=== PATIENT | male | born 1970 | race Caucasian/White ===

== ENCOUNTER 2016-08-06 17:06 | Emergency (ER) | payer MEDICAID ==
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
== END 2016-08-06 19:35 | disposition home or self-care (01) ==
LOC: M ED 17:06
DX: K02.9 Dental caries, unspecified (principal); F32.9 Major depressive disorder, single episode, unspecified; Z79.899 Other long term (current) drug therapy; F17.210 Nicotine dependence, cigarettes, uncomplicated

== ENCOUNTER 2017-01-29 18:34 | Inpatient (IN) | payer MEDICAID, OTHER ==
[~2017-01-29] VITALS: Ht 190.5 cm; Wt 91.0 kg
[2017-01-29] MEDS ORDERED: DULO30CA PO (18:46)
[2017-01-29] MEDS ORDERED: BUSP10TA PO (18:46)
[2017-01-29] MEDS ORDERED: MORPHINE 4 MG/ML 1ML SYRINGE IV ONE ×2 (19:00→22:45)
[2017-01-29] MEDS ORDERED: ONDANSETRON 4MG/2ML VIAL (J2405) IV ONE (19:00)
[2017-01-29 19:08] LABS: BASO # 0.1 K/mm3 (0.0-0.2); BASO % 0.7 % (0.0-1.0); EOS # 0.2 K/mm3 (0.0-0.50); EOS % 2.8 % (0.0-3.0); LARGE UNSTAINED CELL # 0.2 K/mm3 (0.0-0.4); LARGE UNSTAINED CELL % 2.1 % (0.0-4.0); LYMPH # 2.8 K/mm3 (1.5-4.5); MEAN CORPUSCULAR HEMOGLOBIN 30.8 pg (27.0-33.0); MEAN CORPUSCULAR HGB CONC 34.6 g/dl (32.0-36.5); MONO # 0.5 K/mm3 (0.0-0.8); MONO % 5.4 % (0.0-5.0); NEUTROPHILS # 4.9 K/mm3 (1.8-7.7); PLATELET COUNT, AUTOMATED 236 k/mm3 (150-450); RED CELL DISTRIBUTION WIDTH 12.9 % (11.5-14.5); WHITE BLOOD COUNT 8.4 K/mm3 (4.0-10.0)
[2017-01-29 19:15] LABS: INR 0.99
[2017-01-29 19:33] LABS: ANION GAP 7 MEQ/L (8-16); BLOOD UREA NITROGEN 13 MG/DL (7-18); CALCIUM LEVEL 8.7 MG/DL (8.5-10.1); CARBON DIOXIDE LEVEL 24 MEQ/L (21-32); CHLORIDE LEVEL 105 MEQ/L (98-107); CREATININE FOR GFR 1.14 MG/DL (0.70-1.30); GLOMERULAR FILTRATION RATE > 60.0 (>60); GLUCOSE, FASTING 164 MG/DL (70-105); POTASSIUM SERUM 4.3 MEQ/L (3.5-5.1); SODIUM LEVEL 136 MEQ/L (136-145)
[2017-01-29] MEDS ORDERED: fentaNYL 100 MCG/2 ML INJECTION (J3010) IV ONE (20:00)
[2017-01-30] VITALS (8 sets, daily range): BP systolic 122–141; BP diastolic 74–80
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
[2017-01-30] MEDS ORDERED: ceFAZolin 1GM INJ (J0690) As Ordered ONE (15:17)
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
[2017-01-30] MEDS ORDERED: ceFAZolin 2 GM/D5W 50 ML IV BAG (J0690) As Ordered ONE (15:48)
[2017-01-30] MEDS ORDERED: PROPOFOL 500 MG/50 ML VIAL As Ordered ONE (16:11)
[2017-01-30] MEDS ORDERED: MIDAZOLAM INJ 2 MG/2 ML VIAL (J2250) As Ordered ONE (16:11)
[2017-01-30] MEDS ORDERED: dexameTHASONE 4 MG/ML 1ML VIAL (J1100) As Ordered ONE (16:11)
[2017-01-30] MEDS ORDERED: fentaNYL 250 MCG/5 ML INJECTION (J3010) As Ordered ONE (16:11)
[2017-01-30] MEDS ORDERED: ONDANSETRON 4MG/2ML VIAL (J2405) As Ordered ONE (16:12)
[2017-01-30] MEDS ORDERED: METOCLOPRAMIDE INJ 10MG/2ML VIAL (J2765) As Ordered ONE (16:12)
[2017-01-30] MEDS ORDERED: HYDROmorphone HCL 2 MG/ML 1ML VIAL (J1170) As Ordered ONE (17:39)
[2017-01-30] MEDS ORDERED: ePHEDrine SULFATE 25 MG/5 ML(5MG/ML) SYRINGE As Ordered ONE (17:39)
[2017-01-30] MEDS ORDERED: LABETALOL HCL 100 MG/20 ML VIAL As Ordered ONE (17:59)
[2017-01-30] MEDS ORDERED: PERCOCET 5MG/325MG TAB PO PRN (18:30)
[2017-01-30] MEDS ORDERED: MEPERIDINE INJ 25 MG/ML VIAL (J2175) IV PRN (18:30)
[2017-01-30] MEDS ORDERED: ONDANSETRON 4MG/2ML VIAL (J2405) IV PRN (18:30)
[2017-01-30] MEDS ORDERED: METOCLOPRAMIDE INJ 10MG/2ML VIAL (J2765) IV PRN (18:30)
[2017-01-30] MEDS ORDERED: LR 1,000 ML IV SCH (18:30)
[2017-01-30] MEDS ORDERED: fentaNYL 100 MCG/2 ML INJECTION (J3010) IV PRN (18:30)
[2017-01-30] MEDS ORDERED: PERCOCET 5MG/325MG TAB As Ordered ONE (18:48)
--- NOTE | 2017-01-30 19:37 | REP ---
C-ARM VIEWS RIGHT LOWER LE C-ARM views of the right lower leg are performed. There is placement of an intramedullary terri in the tibia fixed by metallic screws both proximally and distally. There are fractures of the proximal fibula and also the distal tibia and fibula. The structures appear well aligned. 2 minutes and 22 seconds fluoroscopic time utilized. Signed by Daniel Howe MD 01/30/2017 08:21 P
[2017-01-31 00:15] VITALS: BP 143/79
[2017-01-31 02:00] VITALS: BP 139/77
[2017-01-31 06:00] VITALS: BP 109/56
[2017-01-31] MEDS ORDERED: PERC5TAB12 PO (07:39)
[2017-01-31] MEDS ORDERED: LOVE1INJ SC (07:42)
--- NOTE | 2017-01-31 14:22 | RO ---
DATE OF PROCEDURE: 01/30/2017 PREOPERATIVE DIAGNOSIS: Right tibia and fibula fracture, closed. POSTOPERATIVE DIAGNOSIS: Right tibia and fibular fracture, closed. PROCEDURE PERFORMED: Right tibia closed reduction and intramedullary nailing. SURGEON: Ochoa Hampton MD DESIGN TECHNOLOGY TEACHER: SHEFALI Alvarez ANESTHESIA: General. ESTIMATED BLOOD LOSS: 200 mL. IMPLANTS: Synthes tibial nail and locking screws. SPECIMENS: No specimens removed. REPLACED: No blood administered. COMPLICATIONS: No complications. DESCRIPTION OF PROCEDURE: The patient was identified in the preoperative holding area by name, medical record number, and date of . Surgical site was marked during consultation with the patient. He was evaluated by anesthesia. When he was ready he was brought back to the operative suite on the [facility] and transferred to the operating room table. At this point, general anesthesia was induced without complications. The right lower extremity was then sterilely prepped and draped in the usual fashion. Prior to beginning the procedure a final time out was performed and all agreed. He was given IV antibiotics prior to incision. This was a closed fracture and I began the procedure by making a longitudinal dissection centered on the patellar tendon, dissecting through the skin and subcutaneous fat. I split the patellar tendon in line with its fibers. I identified the starting point for the Synthes tibial nail in the usual location using fluoroscopic assistance. Next, the entry reamer followed by the ball tip Guidewire was inserted. While holding the fracture reduced with appropriate length, alignment and rotation by direct visualization and fluoroscopic views, it was sequentially reamed up to good cortical chatter at about 11.5. Next, a 10 mm tibial nail was inserted. Satisfactory reduction was appreciated by direct visualization and multiple fluoroscopic views. Next, using the perfect [place] technique, the nail was locked distally and following that it was back slapped to achieve compression at the fracture site and again confirm satisfactory reduction and placement of the hardware, and locked proximally. Final fluoroscopic views in multiple planes above and below the fracture site confirmed satisfactory reduction and placement of all hardware. The wounds were next copiously irrigated and closed in layers. Sterile dressings were applied. The patient was brought out of anesthesia and transferred to the postanesthesia care unit (PACU).
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
== END 2017-01-31 10:05 | disposition home or self-care (01) | DRG 313 ==
LOC: M ED 18:34 → M ED INP 21:20 → M MS5PR 01-30 01:25
PROC: 0SSF04Z Reposition Right Ankle Joint with Internal Fixation Device, Open Approach (ICD-10-PCS; principal; 2017-01-30 12:00)
DX: S82.841A Displaced bimalleolar fracture of right lower leg, initial encounter for closed fracture (principal); F32.9 Major depressive disorder, single episode, unspecified; F41.9 Anxiety disorder, unspecified; F17.200 Nicotine dependence, unspecified, uncomplicated; W17.89XA Other fall from one level to another, initial encounter; Y92.009 Unspecified place in unspecified non-institutional (private) residence as the place of occurrence of the external cause

== ENCOUNTER 2017-11-20 22:53 | Emergency (ER) | payer OTHER, MEDICAID ==
[2017-11-21] MEDS: diazePAM 5 MG TAB PO (00:12)
[2017-11-21 00:14] LABS: BASO # 0.1 10^3/uL (0.0-0.2); BASO % 0.6 % (0.0-1.0); EOS # 0.5 10^3/uL (0.0-0.50); EOS % 4.5 % (0.0-3.0); IMMATURE GRANULOCYTE % 0.6 % (0-3.0); MEAN CORPUSCULAR HEMOGLOBIN 31.5 pg (27.0-33.0); MEAN CORPUSCULAR HGB CONC 35.6 g/dl (32.0-36.5); MEAN CORPUSCULAR VOLUME 88.6 fl (80.0-96.0); MONO # 0.8 10^3/uL (0.0-0.8); MONO % 7.7 % (0.0-5.0); NEUTROPHILS # 4.7 10^3/uL (1.8-7.7); NEUTROPHILS % 46.6 % (36.0-66.0); PLATELET COUNT, AUTOMATED 226 10^3/uL (150-450); RED BLOOD COUNT 5.08 10^6/uL (4.30-6.10); RED CELL DISTRIBUTION WIDTH 12.6 % (11.5-14.5)
[2017-11-21 00:49] LABS: ALT/SGPT 56 U/L (12-78); ANION GAP 5 MEQ/L (8-16); AST/SGOT 36 U/L (7-37); BLOOD UREA NITROGEN 13 MG/DL (7-18); CALCIUM LEVEL 8.3 MG/DL (8.5-10.1); CARBON DIOXIDE LEVEL 30 MEQ/L (21-32); CHLORIDE LEVEL 106 MEQ/L (98-107); CK-MB VALUE MASS 1.6 NG/ML (<3.6); CPK CREATINE PHOSPHOKINASE 201 U/L (39-308); CREATININE FOR GFR 0.98 MG/DL (0.70-1.30); GLOMERULAR FILTRATION RATE > 60.0 (>60); GLUCOSE, FASTING 280 MG/DL (70-100); MB/CK RELATIVE INDEX 0.79 (< OR =4); POTASSIUM SERUM 4.6 MEQ/L (3.5-5.1); SODIUM LEVEL 141 MEQ/L (136-145)
[2017-11-21 00:50] LABS: ALBUMIN 3.6 GM/DL (3.2-5.2); ALBUMIN/GLOBULIN RATIO 1.06 (1.00-1.93); ALKALINE PHOSPHATASE 77 U/L (45-117); BILIRUBIN,TOTAL 0.6 MG/DL (0.2-1.0); TROPONIN I < 0.02 NG/ML (< 0.10)
[2017-11-21] MEDS: KETOROLAC TROMETHAMINE 10 MG TAB PO (01:36)
== END 2017-11-21 01:41 | disposition home or self-care (01) ==
LOC: M ED 11-21 01:41
DX: R07.81 Pleurodynia (principal); J21.9 Acute bronchiolitis, unspecified; E11.9 Type 2 diabetes mellitus without complications; F17.210 Nicotine dependence, cigarettes, uncomplicated; Z88.8 Allergy status to other drugs, medicaments and biological substances
CPT/HCPCS: 71046

== ENCOUNTER 2017-11-29 18:12 | Emergency (ER) | payer OTHER ==
[2017-11-29] MEDS: MORPHINE 10 MG/ML 1ML VIAL (J2270) IM (20:02)
[2017-11-29] MEDS: LORazepam 2 MG/ML VIAL (J2060) IM (20:02)
== END 2017-11-29 20:58 | disposition home or self-care (01) ==
LOC: M ED 18:12
DX: M54.12 Radiculopathy, cervical region (principal); M62.830 Muscle spasm of back; E11.9 Type 2 diabetes mellitus without complications; F32.9 Major depressive disorder, single episode, unspecified; F41.9 Anxiety disorder, unspecified; F17.210 Nicotine dependence, cigarettes, uncomplicated; Z88.6 Allergy status to analgesic agent; Z79.899 Other long term (current) drug therapy; Z79.52 Long term (current) use of systemic steroids
CPT/HCPCS: J2060

== ENCOUNTER → 2018-01-07 | Outpatient (REF) | payer OTHER ==
[2018-01-07 13:37] LABS: ESTIMATED AVERAGE GLUCOSE 255 MG/DL (60-110); HEMOGLOBIN A1c 10.5 %
[2018-01-07 13:59] LABS: ALBUMIN 3.8 GM/DL (3.2-5.2); ALBUMIN/GLOBULIN RATIO 1.12 (1.00-1.93); ALKALINE PHOSPHATASE 97 U/L (45-117); ALT/SGPT 43 U/L (12-78); ANION GAP 8 MEQ/L (8-16); AST/SGOT 17 U/L (7-37); BILIRUBIN,TOTAL 0.7 MG/DL (0.2-1.0); BLOOD UREA NITROGEN 15 MG/DL (7-18); CALCIUM LEVEL 8.8 MG/DL (8.5-10.1); CARBON DIOXIDE LEVEL 27 MEQ/L (21-32); CHLORIDE LEVEL 105 MEQ/L (98-107); CHOLESTEROL LEVEL 162 MG/DL (<200); CREATININE FOR GFR 1.16 MG/DL (0.70-1.30); GLOMERULAR FILTRATION RATE > 60.0 (>60); GLUCOSE, FASTING 220 MG/DL (70-100); HDL CHOLESTEROL 27 MG/DL (>40); NON-HDL-C 135 MG/DL; POTASSIUM SERUM 4.3 MEQ/L (3.5-5.1); SODIUM LEVEL 140 MEQ/L (136-145); TOTAL PROTEIN 7.2 GM/DL (6.4-8.2); TRIGLYCERIDES LEVEL 507 MG/DL (<150)
== END ==
LOC: M LAB REF 12:36
DX: E11.9 Type 2 diabetes mellitus without complications (principal)

== ENCOUNTER → 2018-06-24 | Outpatient (REF) | payer OTHER ==
[2018-06-24 12:56] LABS: ALBUMIN 3.6 GM/DL (3.2-5.2); ALKALINE PHOSPHATASE 71 U/L (45-117); ALT/SGPT 45 U/L (12-78); ANION GAP 7 MEQ/L (8-16); AST/SGOT 16 U/L (7-37); BILIRUBIN,TOTAL 0.4 MG/DL (0.2-1.0); BLOOD UREA NITROGEN 19 MG/DL (7-18); CALCIUM LEVEL 8.9 MG/DL (8.5-10.1); CARBON DIOXIDE LEVEL 24 MEQ/L (21-32); CHLORIDE LEVEL 109 MEQ/L (98-107); CHOLESTEROL LEVEL 140 MG/DL (<200); CHOLESTEROL RISK RATIO 6.086 (<5); CREATININE FOR GFR 0.96 MG/DL (0.70-1.30); GLOMERULAR FILTRATION RATE > 60.0 (>60); GLUCOSE, FASTING 188 MG/DL (70-100); HDL CHOLESTEROL 23 MG/DL (>40); LDL CHOLESTEROL 48 MG/DL (<100); NON-HDL-C 117 MG/DL; POTASSIUM SERUM 4.7 MEQ/L (3.5-5.1); SODIUM LEVEL 140 MEQ/L (136-145); THYROID STIMULATING HORMONE 0.459 uIU/ML (0.358-3.740); TOTAL PROTEIN 7.2 GM/DL (6.4-8.2); TRIGLYCERIDES LEVEL 345 MG/DL (<150)
[2018-06-24 14:05] LABS: ESTIMATED AVERAGE GLUCOSE 214 MG/DL (60-110); HEMOGLOBIN A1c 9.1 %
[2018-06-24 15:17] LABS: MAU/CREAT RATIO 140.8 MCG/MG (0.0-30.0)
== END ==
LOC: M LAB REF 12:23
DX: E11.9 Type 2 diabetes mellitus without complications (principal); I10 Essential (primary) hypertension
CPT/HCPCS: 84443

== ENCOUNTER → 2018-10-03 | Outpatient (REF) | payer OTHER ==
[~2018-10-03] MED LIST: BUSP10TA PO; DULO30CA PO; IBUP-1022 PO; LOVE1INJ SC; PERC5TAB12 PO; PRED20TA PO; ROBA500T PO; TRAZ-160 PO; TYLE325T5 PO; ZITHTAB PO
[2018-10-03 17:34] LABS: INFLUENZA A AMPLIFICATION NEGATIVE (NEGATIVE); INFLUENZA B AMPLIFICATION NEGATIVE (NEGATIVE)
== END ==
LOC: M LAB REF 09:14
PROVIDERS: ATTEND Nurse Practitioner Family
DX: J11.1 Influenza due to unidentified influenza virus with other respiratory manifestations (principal)

== ENCOUNTER → 2018-11-23 | Outpatient (REF) | payer OTHER ==
[~2018-11-23] MED LIST changes: -DULO30CA PO; +DULO30CA9 PO
[2018-11-23 13:48] LABS: ALBUMIN 3.9 GM/DL (3.2-5.2); ALT/SGPT 35 U/L (12-78); BILIRUBIN,TOTAL 0.7 MG/DL (0.2-1.0); BLOOD UREA NITROGEN 13 MG/DL (7-18); CALCIUM LEVEL 8.5 MG/DL (8.5-10.1); CARBON DIOXIDE LEVEL 28 MEQ/L (21-32); CHLORIDE LEVEL 106 MEQ/L (98-107); CHOLESTEROL LEVEL 155 MG/DL (<200); CHOLESTEROL RISK RATIO 5.961 (<5); CREATININE FOR GFR 1.07 MG/DL (0.70-1.30); GLOMERULAR FILTRATION RATE > 60.0 (>56); GLUCOSE, FASTING 178 MG/DL (70-100); HDL CHOLESTEROL 26 MG/DL (>40); NON-HDL-C 129 MG/DL; POTASSIUM SERUM 4.7 MEQ/L (3.5-5.1); SODIUM LEVEL 139 MEQ/L (136-145); THYROID STIMULATING HORMONE 0.807 uIU/ML (0.358-3.740); TOTAL PROTEIN 7.3 GM/DL (6.4-8.2); TRIGLYCERIDES LEVEL 505 MG/DL (<150)
[2018-11-23 14:35] LABS: HEMOGLOBIN A1c 9.1 %
== END ==
LOC: M LAB REF 12:49
PROVIDERS: ATTEND Family Medicine Addiction Medicine
DX: E11.9 Type 2 diabetes mellitus without complications (principal)

== ENCOUNTER → 2019-05-06 | Outpatient (CLI) | payer OTHER ==
[~2019-05-06] MED LIST changes: -TRAZ-160 PO; +TRAZ-252 PO
[2019-05-06 15:46] LABS: ALBUMIN 3.9 GM/DL (3.2-5.2); ALT/SGPT 89 U/L (12-78); BILIRUBIN,TOTAL 0.8 MG/DL (0.2-1.0); BLOOD UREA NITROGEN 16 MG/DL (7-18); CALCIUM LEVEL 9.1 MG/DL (8.5-10.1); CARBON DIOXIDE LEVEL 29 MEQ/L (21-32); CHLORIDE LEVEL 103 MEQ/L (98-107); CHOLESTEROL LEVEL 176 MG/DL (<200); CHOLESTEROL RISK RATIO 6.769 (<5); CREATININE FOR GFR 1.11 MG/DL (0.70-1.30); GLOMERULAR FILTRATION RATE > 60.0 (>56); GLUCOSE, FASTING 206 MG/DL (70-100); HDL CHOLESTEROL 26 MG/DL (>40); NON-HDL-C 150 MG/DL; POTASSIUM SERUM 4.3 MEQ/L (3.5-5.1); SODIUM LEVEL 138 MEQ/L (136-145); TOTAL PROTEIN 7.3 GM/DL (6.4-8.2); TRIGLYCERIDES LEVEL 825 MG/DL (<150)
== END ==
LOC: M LAB 14:12
PROVIDERS: ATTEND Nurse Practitioner Family
DX: E11.65 Type 2 diabetes mellitus with hyperglycemia (principal); E78.00 Pure hypercholesterolemia, unspecified

== ENCOUNTER → 2019-05-10 | Outpatient (REF) | payer OTHER, MEDICAID ==
[~2019-05-10] MED LIST changes: +CYMB60CA3 PO; +LISI-538 PO; +NORT10CA2 PO; +STEG5TAB PO
[2019-05-10 20:01] LABS: ALBUMIN 4.1 GM/DL (3.2-5.2); ALT/SGPT 87 U/L (12-78); BILIRUBIN,TOTAL 0.6 MG/DL (0.2-1.0); BLOOD UREA NITROGEN 16 MG/DL (7-18); CALCIUM LEVEL 9.7 MG/DL (8.5-10.1); CARBON DIOXIDE LEVEL 27 MEQ/L (21-32); CHLORIDE LEVEL 107 MEQ/L (98-107); GLOMERULAR FILTRATION RATE > 60.0 (>56); GLUCOSE, FASTING 171 MG/DL (70-100); SODIUM LEVEL 139 MEQ/L (136-145); TOTAL PROTEIN 7.9 GM/DL (6.4-8.2)
== END ==
LOC: M LAB REF 18:48
PROVIDERS: ATTEND Nurse Practitioner Family
DX: Z01.818 Encounter for other preprocedural examination (principal)

== ENCOUNTER → 2019-05-23 | Outpatient (CLI) | payer OTHER ==
--- NOTE | 2019-05-24 13:31 | SLEEPHOME ---
DATE OF PROCEDURE: 05/23/2019 ORDERED BY: Court Boyd NP Diagnostic home sleep testing was performed due to concern for the obstructive sleep apnea syndrome. For testing, a nocturnal T3 respiratory monitoring device was used. Continuous record was made of pulse, oxygen saturation, airflow, chest and abdominal strain and body position. 11 hours and 59 minutes of data were reviewed. There were 8 hours and 18 minutes marked as time in bed. During the interval marked time in bed, there were 59 respiratory events identified of 10 seconds in duration or greater for respiratory event index of 7.1. The events were primarily obstructive. Baseline pulse rate 80 beats per minute, pulse rate ranged 55-109. Baseline saturation 92%. Saturations dipped to 87%. Testing was performed in both the supine and nonsupine positions. IMPRESSION: Abnormal home sleep testing with repetitive respiratory events and oxygen desaturations to 85% with a respiratory event index of 7.1 is consistent with obstructive sleep apnea syndrome. RECOMMENDATIONS: The patient should be encouraged to undergo formal sleep evaluation.
== END ==
LOC: M CARPUL 10:21
PROVIDERS: ATTEND Nurse Practitioner Family
DX: Z01.818 Encounter for other preprocedural examination (principal); G47.9 Sleep disorder, unspecified

== ENCOUNTER 2019-05-31 05:55 | Inpatient (IN) | payer OTHER ==
--- NOTE | 2019-05-27 14:31 | HPE ---
DATE OF ADMISSION: 05/31/2019 ATTENDING PHYSICIAN: Dr. Crabtree ADMITTING DIAGNOSIS: Neck pain, pain radiating to his left upper extremity, numbness in his bilateral hands. HISTORY: This is a 48-year-old male patient who presents for a history and physical for his upcoming surgery. He is currently consented for an anterior cervical decompression and fusion C4-5, C5-6 and C6-7. Continues to struggle with neck pain. Pain radiates mainly into his left upper extremity, at times between the shoulder blades. He does get intermittent numbness into the first and second digits of both hands. It is worsened with normal day-to-day activities. He has had conservative management to include physical therapy, gabapentin and activity modification as well as NSAIDs. He has elected for surgery for his continued symptoms. MRI of his cervical spine notable for cervical spinal stenosis C4-5, C5-6 and C6-7, most significant stenosis 5-6. X-rays notable for degenerative changes 4-5, 5-6 and 6-7. Medical optimization by his primary nurse practitioner Ha. CURRENT MEDICATIONS: - STEGLATRO 5 mg 1 tablet once per day - Trulicity 0.75 mg/0.5 mL 1 injection subcu once per week - lisinopril 20 mg 1 tablet once per day - Cymbalta 60 mg 1 tablet once per day - buspirone 10 mg 1 tablet once per day. MEDICAL HISTORY: Include: Diabetes. Hypertension. Anxiety/depression. Post traumatic stress disorder. Symptomatic cervical spinal stenosis. Sleep apnea. He was seen by pulmonary who did not feel he required CPAP or BiPAP at this point. PRIOR SURGERIES: Right leg and left wrist. FAMILY HISTORY: Noncontributory. SOCIAL HISTORY: He has recently quit smoking. He has been nicotine free for 2-1/2 weeks now. Denies alcohol use. REVIEW OF SYSTEMS: Denies fever or chills. Denies chest pain, shortness breath or cough. Denies difficulty breathing. Notes persistent pain into his left shoulder and left upper extremity. At times he gets numbness in both hands. Denies any change in his bowel or bladder habits. Denies any nausea or vomiting. Denies abdominal pain. PHYSICAL EXAMINATION: Exam today reveals an alert male patient. He ambulates without assist devices. His mood and affect are appropriate for the situation. Spurling's is positive with increased symptoms to the left upper extremity. Hyperextension of the neck increases pain between the shoulder blades. Deep tendon reflexes are trace in the upper extremities. Clonus is absent. Garcia's is absent. There is some decreased light touch along the index and middle finger along the dorsal aspect of the left hand on exam today. Well-perfused bilateral upper extremities. His neck is supple. The skin is intact. There is bilateral breath sounds without rales or wheeze. Regular rate and rhythm. Abdomen bowel sounds are present. Height 74 1/2 inch, weight 236 pounds, temperature 96.9, blood pressure 130/76, pulse 76, respirations 14. LABORATORY DATA: None. IMPRESSION: Symptomatic cervical spinal stenosis. PLAN: He was consented by Dr. Crabtree for an anterior cervical decompression and fusion at C4-5, C5-6 and C6-7 with the use of VG2 graft. We reviewed the pre and postoperative instructions to include but not limited to being n.p.o. after midnight, length of stay in the facility, the importance of stopping all NSAIDs and/or aspirin at least 5 days prior surgery. He should follow his primary's recommendations for his other medications. He is not currently taking anticoagulants. He understands that he needs to follow the recommendations of his primary in terms of his chronic medications. JALYN
[~2019-05-31] VITALS: Ht 185.4 cm; Wt 106.6 kg
[2019-05-31] VITALS (7 sets, daily range): BP systolic 121–137; BP diastolic 78–89
[2019-05-31] MEDS ORDERED: LR 1,000 ML IV ONE (06:00)
[2019-05-31] MEDS ORDERED: ceFAZolin SOD 1 GM in D5W MINI-BAG PLUS 50 ML IV ONE (06:00)
[2019-05-31] MEDS ORDERED: ceFAZolin SOD 2 GM in IV 1 EA IV ONE (06:00)
[2019-05-31] MEDS ORDERED: methylPREDNISolone INJ 125 MG/2 ML VIAL (J2930) IV ONE (06:00)
[2019-05-31] MEDS ORDERED: GABAPENTIN 300 MG CAP PO ONE (06:00)
[2019-05-31] MEDS ORDERED: PERCOCET 5MG/325MG TAB PO ONE (06:00)
[2019-05-31] MEDS ORDERED: LIDOCAINE W/EPINEPHRINE 1% 20ML VIAL As Ordered ONE (06:56)
[2019-05-31] MEDS ORDERED: THROMBIN SOLN 20,000 UNITS KIT As Ordered ONE (06:56)
[2019-05-31] MEDS ORDERED: BACITRACIN PWD 50,000 UNITS VIAL As Ordered ONE ×2 (06:56→07:13)
[2019-05-31] MEDS ORDERED: methylPREDNISolone 500 MG VIAL (J2930) As Ordered ONE (06:56)
[2019-05-31] MEDS ORDERED: VASOPRESSIN INJ 20 UNITS/ML VIAL As Ordered ONE (08:11)
[2019-05-31] MEDS ORDERED: LACRILUBE (AKWA TEARS) OPHTH OINT 3.5 GM As Ordered ONE (08:25)
[2019-05-31] MEDS ORDERED: LIDOCAINE 2% INJ 100 MG/5 ML SDV (FOR ANES.) As Ordered ONE (08:26)
[2019-05-31] MEDS ORDERED: MIDAZOLAM INJ 2 MG/2 ML VIAL (J2250) As Ordered ONE (08:26)
[2019-05-31] MEDS ORDERED: PHENYLEPHRINE INJ 10MG/ML VIAL (J2370) As Ordered ONE ×2 (08:26→10:27)
[2019-05-31] MEDS ORDERED: ROCURONIUM BROMIDE 50 MG/5 ML VIAL As Ordered ONE ×2 (08:26→08:52)
[2019-05-31] MEDS ORDERED: ONDANSETRON 4MG/2ML VIAL (J2405) As Ordered ONE (08:26)
[2019-05-31] MEDS ORDERED: fentaNYL 250 MCG/5 ML INJECTION (J3010) As Ordered ONE (08:26)
[2019-05-31] MEDS ORDERED: PROPOFOL 200 MG/20 ML VIAL As Ordered ONE (08:26)
[2019-05-31] MEDS ORDERED: PHENYLephrine HCL 500 MCG/5 ML (100MCG/ML) SYRINGE (J2370) As Ordered ONE (08:26)
[2019-05-31] MEDS ORDERED: fentaNYL 100 MCG/2 ML INJECTION (J3010) As Ordered ONE (09:28)
[2019-05-31] MEDS ORDERED: HYDROmorphone HCL 2 MG/ML 1ML VIAL (J1170) As Ordered ONE (10:33)
[2019-05-31] MEDS ORDERED: ceFAZolin 2 GM/D5W 50 ML IV BAG (J0690 PER 500MG) As Ordered ONE (10:51)
[2019-05-31] MEDS ORDERED: ACETAMINOPHEN 1000MG 100ML IV BTL (OFIRMEV) (J0131 PER 10MG) As Ordered ONE (11:43)
[2019-05-31] MEDS ORDERED: SUGAMMADEX SODIUM 500 MG/5 ML VIAL (BRIDION) As Ordered ONE (11:59)
[2019-05-31] MEDS ORDERED: ACETAMINOPHEN TAB 650MG DOSE (2X325MG) PO PRN (13:15)
[2019-05-31] MEDS ORDERED: HYDROMORPHONE HCL 0.5 MG/ 0.5 ML SYRINGE (J1170 PER 1) IV PRN ×2 (13:15)
[2019-05-31] MEDS ORDERED: oxyCODONE 5MG TAB PO PRN (13:15)
[2019-05-31] MEDS ORDERED: ONDANSETRON 4MG/2ML VIAL (J2405) IV PRN (13:15)
[2019-05-31] MEDS ORDERED: PERCOCET 5MG/325MG TAB PO PRN (13:15)
[2019-05-31] MEDS ORDERED: fentaNYL 100 MCG/2 ML INJECTION (J3010) IV PRN (13:15)
[2019-05-31] MEDS ORDERED: LR 1,000 ML IV SCH (13:15)
[2019-05-31] MEDS: D5W/LR 1,000 ML IV SCH ×2 (14:25→23:15)
--- NOTE | 2019-05-31 14:57 | REP ---
PARTIAL CERVICAL SPINE SERIES: Three views. HISTORY: Spinal stenosis. Three intraprocedural images are presented obtained portably. These are time stamped 9:36 a.m., 12:00 p.m., and 12:01 p.m.. The 9:36 a.m. radiograph demonstrates orotracheal and nasopharyngeal catheters. An intraoperative probe is seen projecting within the anterior aspect of the C5-6 disc space. The 12:00 p.m. radiograph demonstrates ventral discectomy and fusion plating across the C4 through C6 vertebral bodies with bone graft plug in place at C4-5 and C5-6. The 12:01 p.m. radiographs is collimated and black and white reversed rendering of the 12:00 p.m. image. It shows no additional finding. Electronically Signed by Martin Guthrie MD 05/31/2019 03:45 P
[2019-05-31] MEDS: HYDROMORPHONE HCL 0.5 MG/ 0.5 ML SYRINGE (J1170 PER 1) IV PRN ×2 (15:07→20:42)
[2019-05-31] MEDS: ceFAZolin SOD 2 GM in IV 1 EA IV SCH ×2 (15:32→20:41)
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
[2019-05-31] MEDS ORDERED: DEXTROSE 50% 50 ML SYRINGE IV PRN (17:00)
[2019-05-31] MEDS ORDERED: GLUCAGON FOR INJ 1 MG VIAL (J1610) SC PRN (17:00)
[2019-05-31] MEDS ORDERED: GLUCOSE 4 GM CHEW TABLET PO PRN (17:00)
[2019-05-31] MEDS: PERCOCET 5MG/325MG TAB PO PRN (17:28)
[2019-05-31] MEDS: HumaLOG INSULIN (NovoLOG) PER UNIT SC SCH (17:28)
[2019-05-31] MEDS ORDERED: ADME100I SC (17:39)
[2019-05-31] MEDS ORDERED: BASA100I SC (17:39)
[2019-05-31] MEDS ORDERED: BUSP30TA PO (17:55)
[2019-05-31] MEDS ORDERED: GABA-843 PO (17:55)
[2019-05-31] MEDS ORDERED: TRUL0.5I SC (17:55)
--- NOTE | 2019-05-31 20:02 | REP ---
Cervical spine: Single view. History: Postop. Findings: A swimmer's lateral view is obtained postop. The patient is status post ventral discectomy and fusion plating across the C4-C7 vertebral body levels. Electronically Signed by Martin Guthrie MD 06/01/2019 09:48 A
[2019-05-31] MEDS: NORTRIPTYLINE 10 MG CAP PO SCH ×2 (20:43→21:00)
[2019-05-31] MEDS: busPIRone 10 MG TAB PO SCH ×2 (20:43→21:00)
[2019-05-31] MEDS: METAMUCIL (PSYLLIUM) PACKET PO SCH (20:44)
[2019-05-31] MEDS: GABAPENTIN 300 MG CAP PO SCH (20:44)
[2019-05-31] MEDS ORDERED: HumaLOG INSULIN (NovoLOG) PER UNIT SC SCH (21:00)
[2019-05-31] MEDS ORDERED: LEVEMIR (INSULIN DETEMIR) 1 UNITS/0.01ML SC SCH (21:00)
[2019-06-01] MEDS: PERCOCET 5MG/325MG TAB PO PRN ×3 (01:18→11:39)
[2019-06-01 02:00] VITALS: BP 115/69
[2019-06-01 06:00] VITALS: BP 151/98
[2019-06-01] MEDS: GABAPENTIN 300 MG CAP PO SCH (08:05)
[2019-06-01] MEDS: HumaLOG INSULIN (NovoLOG) PER UNIT SC SCH ×2 (08:05→11:43)
[2019-06-01] MEDS: METAMUCIL (PSYLLIUM) PACKET PO SCH (08:05)
[2019-06-01] MEDS: HYDROMORPHONE HCL 0.5 MG/ 0.5 ML SYRINGE (J1170 PER 1) IV PRN (08:08)
[2019-06-01 08:09] VITALS: BP 140/79
[2019-06-01] MEDS: busPIRone 10 MG TAB PO SCH (08:09)
[2019-06-01 08:13] LABS: BLOOD UREA NITROGEN 14 MG/DL (7-18); CALCIUM LEVEL 8.6 MG/DL (8.5-10.1); CARBON DIOXIDE LEVEL 27 MEQ/L (21-32); CHLORIDE LEVEL 108 MEQ/L (98-107); GLOMERULAR FILTRATION RATE > 60.0 (>56); GLUCOSE, FASTING 205 MG/DL (70-100); POTASSIUM SERUM 4.2 MEQ/L (3.5-5.1); SODIUM LEVEL 139 MEQ/L (136-145)
[2019-06-01] MEDS ORDERED: busPIRone 10 MG TAB PO SCH (09:00)
[2019-06-01] MEDS ORDERED: MOM 30ML SUSPENSION UDC PO SCH (09:00)
[2019-06-01] MEDS ORDERED: LISINOPRIL 20 MG TAB PO SCH (09:00)
[2019-06-01] MEDS ORDERED: DULoxetine 30 MG CAP (CYMBALTA) PO SCH (09:00)
[2019-06-01 10:00] VITALS: BP 145/81
--- NOTE | 2019-06-01 11:16 | REP ---
Three-view cervical spine: 06/01/2019. Indication: Postoperative assessment. Comparison: New yesterday. Findings: The patient is status post C4 - C7 ACDF with the surgical hardware intact. There is no acute fracture. Expected prevertebral soft tissue swelling is noted. Impression: Expected postoperative sequelae status post C4 - C7 ACDF. Electronically Signed by Heath Esparza DO 06/01/2019 11:08 A
[2019-06-01] MEDS ORDERED: ONDANSETRON 4MG/2ML VIAL (J2405) IV PRN (11:30)
[2019-06-01 14:00] VITALS: BP 144/78
--- NOTE | 2019-06-02 11:16 | RO ---
DATE OF SURGERY: 05/31/2019 PREOPERATIVE DIAGNOSIS: Cervical spinal stenosis with myelopathy and myelomalacia C4-5, 5-6, 6-7. POSTOPERATIVE DIAGNOSIS: Cervical spinal stenosis with myelopathy and myelomalacia C4-5, 5-6, 6-7. PROCEDURE PERFORMED: Anterior cervical decompression and fusion procedure at C4-5 including decompression of the thecal sac, removal of the posterior longitudinal ligament in preparation of endplates and installation of graft material, anterior cervical decompression fusion procedure C5-6 additional level, anterior cervical decompression fusion procedure C6-7 additional level, use of structural allograft for spine surgery - VG2 at C4-5, C5-6 and C6-7, application of anterior cervical instrumentation C4-5, 6-7 four segment. Next, modifier 22 to be appended because of the patient's long history of nicotine cigarette smoking, which resulted in an extremely protracted dissection because of peripharyngeal scarring. SURGEON: Merrick Crabtree MD CULINARY INSTRUCTOR: ANITRA Talbert ANESTHESIA: General. ESTIMATED BLOOD LOSS: Less than 60 mL, replaced with crystalloid, no complications. COMPONENTS USED: Include a [place] 51 mm three-level plate, VG2 graft size 6 x 8 at 6-7, size 5 x7 at 5-6, and size 4 x 6 at 4-5. Appropriate screws utilized. INDICATIONS: Paresthesias primarily on the left, MRI evidence of cervical spinal stenosis severe with myelomalacia. The patient has elected for operative intervention. The patient recently quit smoking. He smoked up to two packs a day for a number of years. OPERATIVE COURSE: Identified in holding area. Site side verified. Brought to the operating room. Anesthesia was administered. He was positioned on the table. Head halter traction 7 pounds utilized. Shoulders taped at the side. Prepped, draped in usual fashion for exposure of the cervical spine. Time-out was accomplished. We injected the line of the incision with 1% lidocaine. Incision was based on palpation of bony landmarks. Next, I utilized loupe magnification and headlamp. Mr. Maloney stood on the left. I stood on the right. This is a right-sided anterior approach. Next, incision was made with a #10 blade developed down through skin and subcuticular tissues to the platysma. The platysma was elevated and divided. At this point, the patient's neck was appreciated to have diffuse fibrotic adhesions throughout likely secondary to a lifetime of cigarette smoking and rather than the usual blunt dissection sharp dissection was required. Next, dissection continued to the sternocleidomastoid. Sharp dissection along the medial border of the sternocleidomastoid was accomplished. Sharp dissection along the omohyoid was accomplished. The omohyoid was elevated and divided using bipolar cautery and tenotomy scissors. Next, dissection continued. Thickened and fibrotic tissue was dissected off the carotid sheath. The carotid sheath was identified and protected laterally. Next, dissection continued and bipolar cauteries utilized for hemostasis. Prevertebral fascia was encountered and appreciated be thickened. Prevertebral fascia was elevated using tenotomy scissors and an S retractor held by Mr. Maloney. We localized the anterior osteophyte complex at C5-6. A bayonet spinal needle was placed at C5-6. Cross-table lateral x-ray was taken to verify our level. Next, dissection continued superiorly and inferiorly to expose C4-5 and C6-7, and again this dissection was significantly tedious and required sharp dissection because of the patient's fibrotic tissue. Next, once this was further exposed distraction pins were placed across C5-6. Annulotomy was accomplished with a #11 blade. Disc material was removed using pituitaries. Endplates were cleared using curettes. Next, we distracted and utilized the Shadow-Line retractor. Next, oval bur was utilized to remove anterior osteophytes, contour the endplates, debride the uncinate processes. Next, curved curettes were utilized to elevate posterior longitudinal ligament, which was removed using curettes and #1 and 2 Kerrison's exposing the thecal sac. Next, once the thecal sac was decompressed and accomplished. Rasps were utilized through a size 5 x7. 5 x 7 sound was applied. 5 x 7 was the appropriate graft, and we obtained a 5 x 7 and implanted it. Next, the next level we accomplished was C6-7. C6-7 was accomplished in a similar fashion. Distraction pins placed across C6-7 as well as the decompression, including removal of the posterior longitudinal ligament to decompress the thecal sac. Disc extrusion was obtained from C6-7 more to the right than the left. Next, at C6-7 we implanted a 6 x 8 structural graft. Next, C4-5 was accomplished in a similar fashion including distraction pins. At C4-5, we broached for and implanted a size 4 x 6 graft. Next, all pin holes were plugged with wax. Hemostasis was accomplished with bipolar cautery. Irrigation was accomplished with saline solution. Next, oval bur was utilized to further contour anterior vertebral bodies to receive the plate. We sized a size 51 plate. The size 51 plate was installed. I utilized 15 screws at C7, 15 screws at C4, 14 screws at the two segments inbetween. All screws were locked into place. Irrigation was again accomplished. Cross-table lateral was taken to verify appropriate plate placement. Next, platysma was reapproximated with interrupted stitch, deep dermis with interrupted stitch. Dermabond was utilized on the wound. His [place] collar was applied. The patient was extubated and moved to recovery room in good condition. For further details please refer to medical record. Additional time required because of the patient's smoking history and cervical fibrosis was approximately 2 hours compared to someone who would have been a nonsmoker without peripharyngeal fibrosis. Mr. Maloney was present and participated in the entirety of the case in the capacity of catering assistant. edited: 06/03/2019 [id number] mariam GUNDERSON
== END 2019-06-01 14:45 | disposition home or self-care (01) | DRG 321 ==
LOC: M OR 05:55 → M MS5PR 14:10
PROVIDERS: ADMIT Orthopaedic Surgery; ATTEND Orthopaedic Surgery
PROC: 0RB30ZZ Excision of Cervical Vertebral Disc, Open Approach (ICD-10-PCS; 2019-05-31)
PROC: 01N10ZZ Release Cervical Nerve, Open Approach (ICD-10-PCS; 2019-05-31)
PROC: 0RG20A0 Fusion of 2 or more Cervical Vertebral Joints with Interbody Fusion Device, Anterior Approach, Anterior Column, Open Approach (ICD-10-PCS; principal; 2019-05-31 07:30)
DX: M48.02 Spinal stenosis, cervical region (principal); Z79.899 Other long term (current) drug therapy; E11.9 Type 2 diabetes mellitus without complications; I10 Essential (primary) hypertension; F41.9 Anxiety disorder, unspecified; F32.9 Major depressive disorder, single episode, unspecified; G47.33 Obstructive sleep apnea (adult) (pediatric); F43.10 Post-traumatic stress disorder, unspecified; F17.200 Nicotine dependence, unspecified, uncomplicated; Z88.6 Allergy status to analgesic agent

== ENCOUNTER → 2019-08-17 | Outpatient (REF) | payer OTHER ==
[~2019-08-17] MED LIST changes: +ADME100I SC; +BASA100I SC; +BUSP30TA PO; +GABA-843 PO; +TRUL0.5I SC
[2019-08-17 19:12] LABS: HEMOGLOBIN A1c 7.8 %
== END ==
LOC: M WUC 16:51
PROVIDERS: ATTEND Nurse Practitioner Family
DX: E11.65 Type 2 diabetes mellitus with hyperglycemia (principal)

== ENCOUNTER → 2020-01-25 | Outpatient (CLI) | payer OTHER ==
[2020-01-25 14:04] LABS: BLOOD UREA NITROGEN 19 MG/DL (7-18); CALCIUM LEVEL 9.1 MG/DL (8.5-10.1); CARBON DIOXIDE LEVEL 25 MEQ/L (21-32); CHLORIDE LEVEL 108 MEQ/L (98-107); CREATININE FOR GFR 1.04 MG/DL (0.70-1.30); GLOMERULAR FILTRATION RATE > 60.0 (>56); GLUCOSE, FASTING 77 MG/DL (70-100); POTASSIUM SERUM 4.5 MEQ/L (3.5-5.1); SODIUM LEVEL 140 MEQ/L (136-145)
[2020-01-25 14:22] LABS: MAU/CREAT RATIO 124.7 MCG/MG (0.0-30.0)
== END ==
LOC: M LAB 11:29
PROVIDERS: ATTEND Nurse Practitioner Family
DX: E11.65 Type 2 diabetes mellitus with hyperglycemia (principal)

== ENCOUNTER → 2020-05-17 | Outpatient (REF) | payer OTHER, MEDICAID ==
[2020-05-17 13:59] LABS: BASO % 0.5 % (0.0-1.0); EOS # 0.7 10^3/uL (0.0-0.5); EOS % 7.6 % (0.0-3.0); HEMATOCRIT 56.5 % (42.0-52.0); HEMOGLOBIN 18.5 g/dl (13.5-17.5); LYMPH # 3.1 10^3/uL (1.5-5.0); LYMPH % 35.6 % (24.0-44.0); MEAN CORPUSCULAR HEMOGLOBIN 29.6 pg (27.0-33.0); MEAN CORPUSCULAR HGB CONC 32.7 g/dl (32.0-36.5); MEAN CORPUSCULAR VOLUME 90.4 fl (80.0-96.0); MONO # 0.6 10^3/uL (0.0-0.8); MONO % 6.8 % (0.0-5.0); NEUTROPHILS # 4.2 10^3/uL (1.5-8.5); NEUTROPHILS % 49.2 % (36.0-66.0); PLATELET COUNT, AUTOMATED 205 10^3/uL (150-450); RED BLOOD COUNT 6.25 10^6/uL (4.30-6.10); WHITE BLOOD COUNT 8.6 10^3/uL (4.0-10.0)
[2020-05-17 14:27] LABS: ALBUMIN 3.8 GM/DL (3.2-5.2); ALT/SGPT 38 U/L (12-78); BILIRUBIN,TOTAL 0.8 MG/DL (0.2-1.0); BLOOD UREA NITROGEN 15 MG/DL (7-18); CALCIUM LEVEL 9.2 MG/DL (8.5-10.1); CARBON DIOXIDE LEVEL 27 MEQ/L (21-32); CHLORIDE LEVEL 108 MEQ/L (98-107); CHOLESTEROL LEVEL 146 MG/DL (<200); CHOLESTEROL RISK RATIO 5.615 (<5); CREATININE FOR GFR 1.11 MG/DL (0.70-1.30); FREE T4 1.03 NG/DL (0.76-1.46); GLOMERULAR FILTRATION RATE > 60.0 (>56); GLUCOSE, FASTING 132 MG/DL (70-100); HDL CHOLESTEROL 26 MG/DL (>40); LDL CHOLESTEROL 41 MG/DL (<100); NON-HDL-C 120 MG/DL; SODIUM LEVEL 141 MEQ/L (136-145); THYROID STIMULATING HORMONE 0.821 uIU/ML (0.358-3.740); TOTAL PROTEIN 7.5 GM/DL (6.4-8.2); TRIGLYCERIDES LEVEL 396 MG/DL (<150)
== END ==
LOC: M LAB REF 12:41
PROVIDERS: ATTEND Nurse Practitioner Family
DX: F12.20 Cannabis dependence, uncomplicated (principal); F17.200 Nicotine dependence, unspecified, uncomplicated; Z13.9 Encounter for screening, unspecified; I10 Essential (primary) hypertension; M54.12 Radiculopathy, cervical region; F41.9 Anxiety disorder, unspecified; E11.9 Type 2 diabetes mellitus without complications

== ENCOUNTER → 2020-08-30 | Outpatient (REF) | payer OTHER, MEDICAID ==
[~2020-08-30] MED LIST changes: +GABA-282 PO; -GABA-843 PO; -LISI-538 PO; +LISI20TA33 PO
[2020-08-30 12:21] LABS: BASO # 0.1 10^3/uL (0.0-0.2); BASO % 0.5 % (0.0-1.0); EOS # 0.4 10^3/uL (0.0-0.5); EOS % 3.7 % (0.0-3.0); HEMATOCRIT 55.7 % (42.0-52.0); HEMOGLOBIN 18.2 g/dl (13.5-17.5); LYMPH # 3.1 10^3/uL (1.5-5.0); LYMPH % 32.9 % (24.0-44.0); MEAN CORPUSCULAR HEMOGLOBIN 29.5 pg (27.0-33.0); MEAN CORPUSCULAR HGB CONC 32.7 g/dl (32.0-36.5); MEAN CORPUSCULAR VOLUME 90.3 fl (80.0-96.0); MONO # 0.7 10^3/uL (0.0-0.8); MONO % 7.8 % (2.0-8.0); NEUTROPHILS # 5.1 10^3/uL (1.5-8.5); NEUTROPHILS % 54.7 % (36.0-66.0); PLATELET COUNT, AUTOMATED 189 10^3/uL (150-450); RED BLOOD COUNT 6.17 10^6/uL (4.30-6.10); WHITE BLOOD COUNT 9.4 10^3/uL (4.0-10.0)
[2020-08-30 12:53] LABS: ALBUMIN 4.1 GM/DL (3.2-5.2); ALT/SGPT 51 U/L (12-78); BILIRUBIN,TOTAL 0.8 MG/DL (0.2-1.0); BLOOD UREA NITROGEN 17 MG/DL (7-18); CALCIUM LEVEL 9.6 MG/DL (8.5-10.1); CARBON DIOXIDE LEVEL 28 MEQ/L (21-32); CHLORIDE LEVEL 107 MEQ/L (98-107); CHOLESTEROL LEVEL 174 MG/DL (<200); CREATININE FOR GFR 1.08 MG/DL (0.70-1.30); GLOMERULAR FILTRATION RATE > 60.0 (>56); GLUCOSE, FASTING 171 MG/DL (70-100); HDL CHOLESTEROL 29 MG/DL (>40); LDL CHOLESTEROL 75 MG/DL (<100); NON-HDL-C 145 MG/DL; POTASSIUM SERUM 5.1 MEQ/L (3.5-5.1); SODIUM LEVEL 143 MEQ/L (136-145); TOTAL PROTEIN 7.2 GM/DL (6.4-8.2); TRIGLYCERIDES LEVEL 350 MG/DL (<150)
[2020-08-30 12:59] LABS: TOTAL 25(OH) VITAMIN D 23.3 NG/ML (30.0-100.0)
== END ==
LOC: M LAB REF 11:28
PROVIDERS: ATTEND Nurse Practitioner Family
DX: E78.5 Hyperlipidemia, unspecified (principal)

== ENCOUNTER → 2020-12-11 | Outpatient (CLI) | payer OTHER ==
[2020-12-11 14:30] LABS: ALBUMIN 3.9 GM/DL (3.2-5.2); ALT/SGPT 45 U/L (12-78); BILIRUBIN,TOTAL 0.9 MG/DL (0.2-1.0); BLOOD UREA NITROGEN 10 MG/DL (7-18); CALCIUM LEVEL 9.3 MG/DL (8.5-10.1); CARBON DIOXIDE LEVEL 28 MEQ/L (21-32); CHLORIDE LEVEL 107 MEQ/L (98-107); CHOLESTEROL LEVEL 126 MG/DL (<200); CHOLESTEROL RISK RATIO 4.064 (<5); CREATININE FOR GFR 0.88 MG/DL (0.70-1.30); GLOMERULAR FILTRATION RATE > 60.0 (>56); GLUCOSE, FASTING 105 MG/DL (70-100); HDL CHOLESTEROL 31 MG/DL (>40); LDL CHOLESTEROL 56 MG/DL (<100); NON-HDL-C 95 MG/DL; POTASSIUM SERUM 4.5 MEQ/L (3.5-5.1); SODIUM LEVEL 140 MEQ/L (136-145); TOTAL PROTEIN 7.2 GM/DL (6.4-8.2); TRIGLYCERIDES LEVEL 195 MG/DL (<150)
== END ==
LOC: M LAB 11:58
PROVIDERS: ATTEND Nurse Practitioner Family
DX: E78.00 Pure hypercholesterolemia, unspecified (principal)

== ENCOUNTER → 2020-12-13 | Outpatient (REF) | payer OTHER ==
[2020-12-13 17:49] LABS: BASO # 0.1 10^3/uL (0.0-0.2); BASO % 0.6 % (0.0-1.0); EOS # 0.4 10^3/uL (0.0-0.5); EOS % 4.3 % (0.0-3.0); HEMATOCRIT 54.7 % (42.0-52.0); HEMOGLOBIN 18.1 g/dl (13.5-17.5); LYMPH # 3.5 10^3/uL (1.5-5.0); LYMPH % 37.3 % (24.0-44.0); MEAN CORPUSCULAR HEMOGLOBIN 30.7 pg (27.0-33.0); MEAN CORPUSCULAR HGB CONC 33.1 g/dl (32.0-36.5); MEAN CORPUSCULAR VOLUME 92.7 fl (80.0-96.0); MONO # 0.7 10^3/uL (0.0-0.8); MONO % 7.7 % (2.0-8.0); NEUTROPHILS # 4.6 10^3/uL (1.5-8.5); NEUTROPHILS % 49.9 % (36.0-66.0); PLATELET COUNT, AUTOMATED 215 10^3/uL (150-450); WHITE BLOOD COUNT 9.3 10^3/uL (4.0-10.0)
[2020-12-13 19:11] LABS: ALT/SGPT 45 U/L (12-78); BLOOD UREA NITROGEN 16 MG/DL (7-18); CALCIUM LEVEL 8.9 MG/DL (8.5-10.1); CARBON DIOXIDE LEVEL 27 MEQ/L (21-32); CHLORIDE LEVEL 109 MEQ/L (98-107); CHOLESTEROL LEVEL 139 MG/DL (<200); CHOLESTEROL RISK RATIO 4.964 (<5); CREATININE FOR GFR 1.06 MG/DL (0.70-1.30); FREE T4 1.05 NG/DL (0.76-1.46); GLOMERULAR FILTRATION RATE > 60.0 (>56); GLUCOSE, FASTING 109 MG/DL (70-100); HDL CHOLESTEROL 28 MG/DL (>40); LDL CHOLESTEROL 43 MG/DL (<100); NON-HDL-C 111 MG/DL; POTASSIUM SERUM 5.1 MEQ/L (3.5-5.1); SODIUM LEVEL 141 MEQ/L (136-145); THYROID STIMULATING HORMONE 0.984 uIU/ML (0.358-3.740); TOTAL PROTEIN 7.4 GM/DL (6.4-8.2); TRIGLYCERIDES LEVEL 342 MG/DL (<150)
== END ==
LOC: M LAB REF 17:18
PROVIDERS: ATTEND Nurse Practitioner Family
DX: I10 Essential (primary) hypertension (principal); F17.200 Nicotine dependence, unspecified, uncomplicated; E11.8 Type 2 diabetes mellitus with unspecified complications; E78.5 Hyperlipidemia, unspecified

== ENCOUNTER → 2021-10-24 | Outpatient (CLI) | payer OTHER ==
[~2021-10-24] MED LIST changes: -CYMB60CA3 PO; +CYMB60CA4 PO
[2021-10-24 12:49] LABS: MAU/CREAT RATIO 448.8 MCG/MG (0.0-30.0)
== END ==
LOC: M LAB 10:16
PROVIDERS: ATTEND Nurse Practitioner Family
DX: E11.65 Type 2 diabetes mellitus with hyperglycemia (principal)

== ENCOUNTER → 2021-11-09 | Outpatient (CLI) | payer OTHER | LOC: M LABSMTC 11:15 | PROVIDERS: ATTEND Anesthesiology | DX: Z01.812 Encounter for preprocedural laboratory examination (principal); Z20.822 Contact with and (suspected) exposure to COVID-19 ==

== ENCOUNTER → 2022-01-12 | Outpatient (CLI) | payer OTHER | LOC: M LABSMTC 11:17 | PROVIDERS: ATTEND Anesthesiology | DX: Z01.812 Encounter for preprocedural laboratory examination (principal); Z20.822 Contact with and (suspected) exposure to COVID-19 ==

== ENCOUNTER 2022-01-16 08:25 | Day surgery (SDC) | payer OTHER ==
[~2022-01-16] VITALS: Ht 190.5 cm; Wt 99.3 kg
[~2022-01-16 08:25] MED LIST changes: +NS 1,000 ML IV ONE
[2022-01-16] MEDS ORDERED: propofoL 200 MG/20 ML VIAL As Ordered ONE (10:05)
[2022-01-16] MEDS ORDERED: fentaNYL 100 MCG/2 ML INJECTION As Ordered ONE (10:05)
[2022-01-16] MEDS ORDERED: LIDOCAINE 2% INJ 100 MG/5 ML SYRINGE As Ordered ONE (10:18)
[2022-01-16 10:35] VITALS: BP 169/80
== END 2022-01-16 10:46 | disposition home or self-care (01) ==
LOC: M OPP 08:25
PROVIDERS: ATTEND Surgery
DX: R19.5 Other fecal abnormalities (principal); K64.2 Third degree hemorrhoids; K21.00 Gastro-esophageal reflux disease with esophagitis, without bleeding; K29.80 Duodenitis without bleeding; I10 Essential (primary) hypertension; E11.9 Type 2 diabetes mellitus without complications; Z79.4 Long term (current) use of insulin; Z79.899 Other long term (current) drug therapy; Z88.6 Allergy status to analgesic agent; F17.210 Nicotine dependence, cigarettes, uncomplicated
CPT/HCPCS: 43239; 45378; 88305; J3010

== ENCOUNTER → 2022-05-08 | Outpatient (REF) | payer OTHER ==
[~2022-05-08] MED LIST changes: -NS 1,000 ML IV ONE
[2022-05-08 15:32] LABS: ALT/SGPT 45 U/L (12-78); BLOOD UREA NITROGEN 17 MG/DL (7-18); CALCIUM LEVEL 9.7 MG/DL (8.5-10.1); CARBON DIOXIDE LEVEL 30 MEQ/L (21-32); CHLORIDE LEVEL 107 MEQ/L (98-107); CHOLESTEROL LEVEL 158 MG/DL (<200); CHOLESTEROL RISK RATIO 5.448 (<5); CREATININE FOR GFR 0.99 MG/DL (0.70-1.30); GLOMERULAR FILTRATION RATE > 60.0 (>56); GLUCOSE, FASTING 102 MG/DL (70-100); HDL CHOLESTEROL 29 MG/DL (>40); LDL CHOLESTEROL 66 MG/DL (<100); NON-HDL-C 129 MG/DL; POTASSIUM SERUM 4.7 MEQ/L (3.5-5.1); SODIUM LEVEL 139 MEQ/L (136-145); TOTAL PROTEIN 7.8 GM/DL (6.4-8.2); TRIGLYCERIDES LEVEL 315 MG/DL (<150)
== END ==
LOC: M LAB REF 12:23
PROVIDERS: ATTEND Pediatrics
DX: I10 Essential (primary) hypertension (principal); E78.5 Hyperlipidemia, unspecified; E78.6 Lipoprotein deficiency; F17.200 Nicotine dependence, unspecified, uncomplicated; E11.65 Type 2 diabetes mellitus with hyperglycemia

== ENCOUNTER → 2023-01-01 | Outpatient (CLI) | payer OTHER | LOC: M RAD 16:24 | PROVIDERS: ATTEND Pediatrics | DX: Z12.2 Encounter for screening for malignant neoplasm of respiratory organs (principal); R91.8 Other nonspecific abnormal finding of lung field; F17.200 Nicotine dependence, unspecified, uncomplicated ==

== ENCOUNTER → 2023-02-27 | Outpatient (REF) | payer OTHER | LOC: M SMT 13:09 | PROVIDERS: ATTEND Urology | DX: Z30.2 Encounter for sterilization (principal) ==

== ENCOUNTER → 2023-04-23 | Outpatient (REF) | payer OTHER ==
[2023-04-23 18:16] LABS: ALBUMIN 3.7 G/DL (3.2-5.2); ALKALINE PHOSPHATASE 69 U/L (46-116); ALT/SGPT 38 U/L (7.0-40); AST/SGOT 16 U/L (<34); BILIRUBIN,TOTAL 0.5 MG/DL (0.3-1.2); BLOOD UREA NITROGEN 15 MG/DL (9-23); CALCIUM LEVEL 8.8 MG/DL (8.5-10.1); CARBON DIOXIDE LEVEL 26 MMOL/L (20-31); CHLORIDE LEVEL 108 MMOL/L (98-107); CHOLESTEROL LEVEL 152 MG/DL (<200); CHOLESTEROL RISK RATIO 5.93 (<5); GLOMERULAR FILTRATION RATE > 60.0 (>56); GLUCOSE, FASTING 162 MG/DL (60-100); HDL CHOLESTEROL 25.6 MG/DL (>40); NON-HDL-C 126.4 MG/DL; POTASSIUM SERUM 4.8 MMOL/L (3.5-5.1); SODIUM LEVEL 141 MMOL/L (136-145); THYROID STIMULATING HORMONE 1.334 uIU/ML (0.55-4.78); TOTAL PROTEIN 6.7 G/DL (5.7-8.2); TRIGLYCERIDES LEVEL 596 MG/DL (<150)
== END ==
LOC: M LAB REF 16:47
PROVIDERS: ATTEND Pediatrics
DX: E78.5 Hyperlipidemia, unspecified (principal); Z12.5 Encounter for screening for malignant neoplasm of prostate

== ENCOUNTER → 2023-09-18 | Outpatient (REF) | payer OTHER ==
[2023-09-18 19:21] LABS: CREATININE, URINE 99.7 MG/DL; MAU/CREAT RATIO 318.9 MCG/MG (0.0-30.0)
== END ==
LOC: M LAB REF 17:11
PROVIDERS: ATTEND Nurse Practitioner Family
DX: E11.65 Type 2 diabetes mellitus with hyperglycemia (principal)

== ENCOUNTER → 2024-01-26 | Outpatient (CLI) | payer OTHER | LOC: M RAD 16:54 | PROVIDERS: ATTEND Pediatrics | DX: Z12.2 Encounter for screening for malignant neoplasm of respiratory organs (principal); F17.201 Nicotine dependence, unspecified, in remission; R91.1 Solitary pulmonary nodule ==

== ENCOUNTER → 2024-05-02 | Outpatient (REF) | payer OTHER ==
[~2024-05-02] MED LIST changes: +GABA-1172 PO; -GABA-282 PO
[2024-05-02 16:56] LABS: CREATININE, URINE 102.3 MG/DL
[2024-05-02 17:10] LABS: MAU/CREAT RATIO 552.2 MCG/MG (0.0-30.0)
[2024-05-02 17:15] LABS: ALKALINE PHOSPHATASE 67 U/L (46-116); ALT/SGPT 37 U/L (7.0-40); AST/SGOT 14 U/L (<34); BILIRUBIN,TOTAL 1.2 MG/DL (0.3-1.2); BLOOD UREA NITROGEN 15 MG/DL (9-23); CALCIUM LEVEL 9.9 MG/DL (8.5-10.1); CARBON DIOXIDE LEVEL 27 MMOL/L (20-31); CHLORIDE LEVEL 109 MMOL/L (98-107); CHOLESTEROL LEVEL 89 MG/DL (<200); CHOLESTEROL RISK RATIO 2.78 (<5); GLOMERULAR FILTRATION RATE > 60.0 (>56); GLUCOSE, FASTING 120 MG/DL (60-100); LDL CHOLESTEROL 35.6 MG/DL (<100); POTASSIUM SERUM 4.6 MMOL/L (3.5-5.1); PSA SCREENING 0.99 NG/ML (< 4.00); SODIUM LEVEL 139 MMOL/L (136-145); TOTAL PROTEIN 7.5 G/DL (5.7-8.2); TRIGLYCERIDES LEVEL 107 MG/DL (<150)
[2024-05-02 17:17] LABS: THYROID STIMULATING HORMONE 0.754 uIU/ML (0.55-4.78)
[2024-05-02 17:18] LABS: BASO # 0.1 10^3/uL (0.0-0.2); BASO % 0.7 % (0.0-1.0); EOS # 0.4 10^3/uL (0.0-0.5); EOS % 5.2 % (0.0-3.0); HEMATOCRIT 47.7 % (42.0-52.0); HEMOGLOBIN 16.3 g/dl (13.5-17.5); LYMPH % 40.8 % (24.0-44.0); MEAN CORPUSCULAR HEMOGLOBIN 30.6 pg (27.0-33.0); MEAN CORPUSCULAR HGB CONC 34.2 g/dl (32.0-36.5); MEAN CORPUSCULAR VOLUME 89.5 fl (80.0-96.0); MONO # 0.5 10^3/uL (0.0-0.8); MONO % 6.4 % (2.0-8.0); NEUTROPHILS # 3.4 10^3/uL (1.5-8.5); NEUTROPHILS % 46.8 % (36.0-66.0); PLATELET COUNT, AUTOMATED 199 10^3/uL (150-450); RED BLOOD COUNT 5.33 10^6/uL (4.30-6.10); WHITE BLOOD COUNT 7.3 10^3/uL (4.0-10.0)
== END ==
LOC: M LAB REF 16:09
PROVIDERS: ATTEND Pediatrics
DX: I10 Essential (primary) hypertension (principal); R80.9 Proteinuria, unspecified; E78.5 Hyperlipidemia, unspecified; Z12.5 Encounter for screening for malignant neoplasm of prostate

== ENCOUNTER → 2025-02-23 | Outpatient (CLI) | payer OTHER | LOC: M PLAIMG 14:03 | PROVIDERS: ATTEND Pediatrics | DX: R91.1 Solitary pulmonary nodule (principal) ==

== ENCOUNTER → 2025-05-02 | Outpatient (REF) | payer OTHER ==
[~2025-05-02] MED LIST changes: -IBUP-1022 PO; +IBUP600T42 PO
[2025-05-02 17:05] LABS: PSA SCREENING 1.00 NG/ML (< 4.00)
[2025-05-02 17:08] LABS: CALCIUM LEVEL 9.1 MG/DL (8.5-10.1); CARBON DIOXIDE LEVEL 28 MMOL/L (20-31); CHLORIDE LEVEL 104 MMOL/L (98-107); CHOLESTEROL LEVEL 94 MG/DL (<200); CHOLESTEROL RISK RATIO 3.00 (<5); CREATININE FOR GFR 0.92 MG/DL (0.70-1.30); GLOMERULAR FILTRATION RATE > 90.0 (>56); LDL CHOLESTEROL 30.9 MG/DL (<100); NON-HDL-C 62.7 MG/DL; POTASSIUM SERUM 4.3 MMOL/L (3.5-5.1); SODIUM LEVEL 141 MMOL/L (136-145); TRIGLYCERIDES LEVEL 159 MG/DL (<150)
== END ==
LOC: M LAB REF 16:15
PROVIDERS: ATTEND Pediatrics
DX: I10 Essential (primary) hypertension (principal); Z12.5 Encounter for screening for malignant neoplasm of prostate; E78.5 Hyperlipidemia, unspecified